=== PATIENT | female | born 1990 | race Caucasian/White ===

== ENCOUNTER 2016-06-03 15:21 | Emergency (ER) | payer SELFPAY ==
[~2016-06-03 15:21] MED LIST: AMIT50 PO; LORA0.5T PO; PROM25TA5 PO
[2016-06-03 15:45] VITALS: BP 140/107; PULSE 115; RESP 18; TEMP 98; O2SAT 96
[2016-06-03] MEDS ORDERED: SODIUM CHLOR 0.9% 1000 ML INJ 1,000 ML IV ONE ×2 (15:45→17:30)
[2016-06-03] MEDS ORDERED: ONDANSETRON HCL 4 MG/2 ML VIAL IV PUSH ONE ×2 (15:45→18:15)
[2016-06-03] MEDS ORDERED: HYDROmorphone HCL PF 1 MG/ML VIAL IV PUSH ONE ×2 (15:45→18:15)
[2016-06-03 15:50] LABS: AUTOMATED NEUTROPHIL # 13.4 TH/MM3 (1.8-7.7); BASOPHIL # 0.2 TH/MM3 (0-0.2); EOSINOPHIL # 0.5 TH/MM3 (0-0.4); EOSINOPHIL % 2.8 % (0.0-4.0); HEMATOCRIT 37.3 % (35.0-46.0); HEMO FLAGS DIFF FINAL; LYMPH % 19.1 % (9.0-44.0); LYMPHOCYTE # 3.6 TH/MM3 (1.0-4.8); MEAN CELL VOLUME 89.4 FL (80.0-100.0); MEAN CORPUSCULAR HEMOGLOBIN 30.6 PG (27.0-34.0); MEAN CORPUSCULAR HGB CONC 34.3 % (32.0-36.0); MONO % 6.9 % (0.0-8.0); NEUT % 70.2 % (16.0-70.0); PLATELET COUNT 329 TH/MM3 (150-450); RED BLOOD COUNT 4.17 MIL/MM3 (4.00-5.30); RED CELL DISTRIBUTION WIDTH 12.7 % (11.6-17.2)
--- NOTE | 2016-06-03 15:50 | PD ---
HPI Chief Complaint: GI Complaint Time Seen by Provider: 15:25 Travel History International Travel<30 days: No Contact w/Intl Traveler<30days: No Traveled to known affect area: No History of Present Illness HPI This 26-year-old female complaining of abdominal pain and vomiting. She has a history of Crohn's disease. She has had recurrent bouts of vomiting in the past. The possibility of cannabis hyperemesis syndrome has been raised in the past but she says she is not a heavy cannabis smoker. She says she sees Dr. Sherman and he has her on Ativan and Dilaudid for her Crohn's. She is not on any other disease modifying drugs. She says that she had a colonoscopy done 3 months ago which showed Crohn's disease. She says that she was feeling okay yesterday. She is noted to have some discomfort at night and took a Ativan and Dilaudid. Today she started having persistent vomiting and increasing left- sided abdominal pain. She is also having loose stools PFSH Past Medical History Autoimmune Disease: Yes (CHRONS) Blood Disorders: No Anxiety: Yes Depression: No Cancer: No Cardiovascular Problems: No Diabetes: No Diminished Hearing: No Endocrine: No Gastrointestinal Disorders: Yes ("chronic vomiting syndrome') Glaucoma: No Genitourinary: No Immune Disorder: No Implanted Vascular Access Dvce: No Kidney Stones: Yes Musculoskeletal: No Neurologic: No Psychiatric: Yes Reproductive: No Respiratory: No Immunizations Current: No Sickle Cell Disease: No Thyroid Disease: No Ulcer: Yes : 1 Para: 1 Past Surgical History Section: Yes Cholecystectomy: Yes Other Surgery: No Social History Alcohol Use: No Tobacco Use: No Substance Use: No (denies) Allergies-Medications (Allergen,Severity, Reaction): Coded Allergies: Amoxicillin (Verified Allergy, Severe, Anaphylaxis, 06/03/16) Cat Dander (Verified Allergy, Severe, Itching, 06/03/16) Hydrocodone (Verified Allergy, Mild, Nausea/Vomiting, 06/03/16) Reported Meds & Prescriptions Reported Meds & Active Scripts Active Reported Lorazepam 0.5 Mg Tab 0.5 Mg PO BID PRN Elavil 50 Mg Tab (Amitriptyline HCl) 50 Mg Tab 50 Mg PO HS Phenergan 25 mg (Promethazine HCl) 25 Mg Tab 25 Mg PO Q6H PRN Review of Systems General / Constitutional: No: Fever, Chills Eyes: No: Diploplia, Blurred Vision HENT: No: Headaches, Vertigo Cardiovascular: No: Chest Pain or Discomfort, Palpitations Respiratory: No: Cough, Shortness of Breath Gastrointestinal: Positive: Nausea, Vomiting, Diarrhea, Abdominal Pain Genitourinary: No: Urgency, Frequency Musculoskeletal: No: Myalgias Skin: No Rash, No Itching Hematologic/Lymphatic: No: Easy Bruising Physical Exam Narrative GENERAL: Well-developed female. She is actively vomiting on arrival SKIN: Warm and dry. HEAD: Atraumatic. Normocephalic. EYES: Pupils equal and round. No scleral icterus. No injection or drainage. ENT: No nasal bleeding or discharge. Mucous membranes pink and moist. NECK: Trachea midline. No JVD. CARDIOVASCULAR: Regular rate and rhythm. No murmur appreciated. RESPIRATORY: No accessory muscle use. Clear to auscultation. Breath sounds equal bilaterally. GASTROINTESTINAL: Abdomen soft, there is some left-sided tenderness with deep palpation there is no guarding or rigidity, nondistended. Hepatic and splenic margins not palpable. Bowel Sounds are active MUSCULOSKELETAL: No obvious deformities. No clubbing. No cyanosis. No edema. NEUROLOGICAL: Awake and alert. No obvious cranial nerve deficits. Motor grossly within normal limits. Normal speech. PSYCHIATRIC: Appropriate mood and affect; insight and judgment normal. Data Data Orders Complete Blood Count With Diff (06/03/16 15:36) Comprehensive Metabolic Panel (06/03/16 15:36) Lipase (06/03/16 15:36) Urinalysis - C+S If Indicated (06/03/16 15:36) Sodium Chlor 0.9% 1000 Ml Inj (Ns 1000 M (06/03/16 15:45) Ondansetron Inj (Zofran Inj) (06/03/16 15:45) Hydromorphone Pf Inj (Dilaudid Pf Inj) (06/03/16 15:45) MDM Medical Decision Making Medical Screen Exam Complete: Yes Emergency Medical Condition: Yes Medical Record Reviewed: Yes Differential Diagnosis Differential includes Crohn's disease, repetitive vomiting, dehydration Narrative Course She has been started on IV fluids and Zofran and Dilaudid ordered. Lab work is pending. Review of chart shows that the patient has had multiple CT scans which have not revealed a diagnosis. She says that she has Crohn's based on her colonoscopy. Diagnosis Primary Impression: Jaret Arita MD Jun 03, 2016 15:50
[2016-06-03] MEDS ORDERED: PROM25TA5 PO ×2 (15:51→18:24)
[2016-06-03] MEDS ORDERED: DILA4TAB2 PO (15:51)
[2016-06-03] MEDS ORDERED: AMIT1TAB79 PO (15:51)
[2016-06-03] MEDS ORDERED: LORA-373 PO (15:51)
[2016-06-03 16:00] LABS: CHLORIDE 107 MEQ/L (98-107); POTASSIUM 3.9 MEQ/L (3.5-5.1); SODIUM (NA) 140 MEQ/L (136-145)
[2016-06-03 16:03] LABS: ANION GAP 11 MEQ/L (5-15); BICARBONATE 22.2 MEQ/L (21.0-32.0)
[2016-06-03 16:04] LABS: BLOOD UREA NITROGEN 17 MG/DL (7-18)
[2016-06-03 16:06] LABS: ALT (GPT) 17 U/L (10-53); AST (GOT) 13 U/L (15-37); GLOMERULAR FILTRATION RATE 82 ML/MIN (>89)
--- NOTE | 2016-06-03 16:06 | PD ---
Physical Exam Date Seen by Provider: Jun 03, 2016 Narrative Care assumed from Dr. Mcwilliams at 1600 pending lab workup. The patient is very anxious appearing. She is writhing on the bed. Her abdomen is soft and she has left sided abdominal tenderness. Data Data Last Documented VS Vital Signs Date Time Temp Pulse Resp B/P Pulse Ox O2 Delivery O2 Flow Rate FiO2 06/03/16 16:59 18 06/03/16 16:23 78 90/40 100 Room Air 06/03/16 15:45 98.0 Orders Complete Blood Count With Diff (06/03/16 15:36) Comprehensive Metabolic Panel (06/03/16 15:36) Lipase (06/03/16 15:36) Urinalysis - C+S If Indicated (06/03/16 15:36) Sodium Chlor 0.9% 1000 Ml Inj (Ns 1000 M (06/03/16 15:45) Ondansetron Inj (Zofran Inj) (06/03/16 15:45) Hydromorphone Pf Inj (Dilaudid Pf Inj) (06/03/16 15:45) Lorazepam Inj (Ativan Inj) (06/03/16 16:45) Drug Screen, Random Urine (06/03/16 16:39) Labs Laboratory Tests Test 06/03/16 06/03/16 15:30 16:40 White Blood Count 19.0 TH/MM3 Red Blood Count 4.17 MIL/MM3 Hemoglobin 12.8 GM/DL Hematocrit 37.3 % Mean Corpuscular Volume 89.4 FL Mean Corpuscular Hemoglobin 30.6 PG Mean Corpuscular Hemoglobin 34.3 % Concent Red Cell Distribution Width 12.7 % Platelet Count 329 TH/MM3 Mean Platelet Volume 6.3 FL Neutrophils (%) (Auto) 70.2 % Lymphocytes (%) (Auto) 19.1 % Monocytes (%) (Auto) 6.9 % Eosinophils (%) (Auto) 2.8 % Basophils (%) (Auto) 1.0 % Neutrophils # (Auto) 13.4 TH/MM3 Lymphocytes # (Auto) 3.6 TH/MM3 Monocytes # (Auto) 1.3 TH/MM3 Eosinophils # (Auto) 0.5 TH/MM3 Basophils # (Auto) 0.2 TH/MM3 CBC Comment DIFF FINAL Differential Comment Sodium Level 140 MEQ/L Potassium Level 3.9 MEQ/L Chloride Level 107 MEQ/L Carbon Dioxide Level 22.2 MEQ/L Anion Gap 11 MEQ/L Blood Urea Nitrogen 17 MG/DL Creatinine 0.84 MG/DL Estimat Glomerular Filtration 82 ML/MIN Rate Random Glucose 117 MG/DL Calcium Level 9.7 MG/DL Total Bilirubin 0.7 MG/DL Aspartate Amino Transf 13 U/L (AST/SGOT) Alanine Aminotransferase 17 U/L (ALT/SGPT) Alkaline Phosphatase 72 U/L Total Protein 8.8 GM/DL Albumin 4.5 GM/DL Lipase 404 U/L Urine Collection Type CLEAN CATCH Urine Color YELLOW Urine Turbidity SLIGHT Urine pH 5.5 Urine Specific [place] 1.028 Urine Protein TRACE mg/dL Urine Glucose (UA) NEG mg/dL Urine Ketones NEG mg/dL Urine Occult Blood TRACE Urine Nitrite NEG Urine Bilirubin NEG Urine Leukocyte Esterase NEG Urine RBC 4-9 /hpf Urine WBC 0-2 /hpf Urine Squamous Epithelial > 8 /hpf Cells Urine Transitional Epithelial 0-5 /hpf Cells Urine Amorphous Sediment MOD Urine Bacteria FEW /hpf Urine Hyaline Casts 0-2 /lpf Microscopic Urinalysis Comment CULT NOT INDICATED Urine Collection Time 1640 Urine Opiates Screen POS Urine Barbiturates Screen NEG Urine Amphetamines Screen NEG Urine Benzodiazepines Screen NEG Urine Cocaine Screen NEG Urine Cannabinoids Screen POS MDM Supervised Visit with [facility]: No Narrative Course Chart reviewed. The patient has had previous nondiagnostic CTs of her abdomen and pelvis. This study will not be repeated today. Her labs are currently pending. 1630 p.m. Patient has started complaining again with pain. So far, she has been treated with Dilaudid and Zofran. She seems very anxious. I have added Ativan. CBC & BMP Diagram 06/03/16 15:30 Lipase is 404. The upper limit of normal 393. Therefore, this is probably not a clinically significant abnormal lab finding. Screen is positive for cannabinoids. It is also positive for opiates but she was given Dilaudid here and takes Dilaudid as an outpatient. 5:15 PM The patient reports that she is significantly improved and believes that she'll be able to go home. She would like to have some more nausea and pain medicine prior to discharge as well as another bag of fluid. Diagnosis Primary Impression: Vomiting Qualified Code: R11.2 - Non-intractable vomiting with nausea, unspecified vomiting type Additional Impression: Abdominal pain Qualified Code: R10.30 - Lower abdominal pain Sherri Daniels MD Jun 03, 2016 16:06
[2016-06-03 16:08] LABS: TOTAL BILIRUBIN ADULT 0.7 MG/DL (0.2-1.0)
[2016-06-03 16:09] LABS: ALKALINE PHOSPHATASE 72 U/L (45-117)
[2016-06-03 16:23] VITALS: BP 90/40; PULSE 78; RESP 18; O2SAT 100
[2016-06-03] MEDS ORDERED: LORazepam 2 MG/ML VIAL IV PUSH ONE (16:45)
[2016-06-03 16:54] LABS: BLOOD, URINE TRACE (NEG); GLUCOSE,URINE NEG (NEG); KETONE, URINE NEG (NEG); NITRITE,URINE NEG (NEG); PH, URINE 5.5 (5.0-8.5)
[2016-06-03 16:56] LABS: METHOD OF COLLECTION CLEAN CATCH; URINE COLOR YELLOW (YELLW/STRAW)
[2016-06-03 17:02] LABS: AMPHETAMINE, URINE NEG (NEG); BACTERIA, URINE FEW /hpf; BARBITURATES, URINE NEG (NEG); COCAINE, URINE NEG (NEG); COMMENT (UR) CULT NOT INDICATED; CULTURE IF INDICATED CULT NOT INDICATED; SQUAMOUS EPITHELIAL CELL URINE > 8 /hpf (0-5); WBC, URINE 0-2 /hpf (0-5)
[2016-06-03 17:03] LABS: COMMENT2 (UR) MUCOUS PRESENT; HYALINE CAST, URINE 0-2 /lpf (RARE); TRANSITIONAL EPI CELLS, URINE 0-5 /hpf
[2016-06-03 17:56] VITALS: BP 110/58; PULSE 98; RESP 18; O2SAT 100
[2016-06-03 17:57] VITALS: RESP 18
== END 2016-06-03 18:31 | disposition home or self-care (01) ==
LOC: PHED 15:21
DX: R11.2 Nausea with vomiting, unspecified (principal); R10.30 Lower abdominal pain, unspecified
CPT/HCPCS: 80053; 80307; 81001; 83690; 85025; 96361; 96374; 96375; 96376; 99284; J1170; J2060; J2405; J7030